=== PATIENT | female | born 1975 | race Caucasian/White ===

== ENCOUNTER 2021-05-09 09:38 | Emergency (ER) | payer BC, MEDICAID ==
[~2021-05-09] VITALS: Ht 149.9 cm; Wt 72.7 kg
[2021-05-09 10:18] LABS: BASOPHILS # (AUTO) 0.1 X10'3 (0-0.2); BASOPHILS % (AUTO) 0.7 % (0-1); EOSINOPHILS # (AUTO) 0.2 X10'3 (0-0.9); EOSINOPHILS % (AUTO) 2.6 % (0-6); HEMATOCRIT 40.7 % (35.0-45.0); LYMPHOCYTES # (AUTO) 1.6 X10'3 (1.1-4.8); LYMPHOCYTES % (AUTO) 19.8 % (21-51); MEAN CORPUSCULAR HEMOGLOBIN 30.8 PG (27.0-31.0); MEAN CORPUSCULAR HGB CONC 34.4 g/dL (33.0-36.5); MEAN CORPUSCULAR VOLUME 89.4 FL (78-98); MEAN PLATELET VOLUME 8.7 FL (7.4-10.4); MONOCYTES # (AUTO) 0.5 X10'3 (0-0.9); MONOCYTES % (AUTO) 6.8 % (2-12); NEUTROPHILS # (AUTO) 5.5 X10'3 (1.8-7.7); NEUTROPHILS % (AUTO) 70.1 % (42-75); PLATELET COUNT 268 X10'3 (140-440); RED BLOOD COUNT 4.55 X10'6 (4.20-5.60); RED CELL DISTRIBUTION WIDTH 12.4 % (11.5-14.5); WHITE BLOOD COUNT 7.8 X10'3 (4.5-11.0)
[2021-05-09 10:45] LABS: ALANINE AMINOTRANSFERASE 29 U/L (12-78); ALBUMIN 3.6 G/DL (3.4-5.0); ALBUMIN/GLOBULIN RATIO 0.9 (1.1-1.5); ALKALINE PHOSPHATASE 93 IU/L (46-116); ANION GAP 7 (8-16); ASPARTATE AMINO TRANSFERASE 23 U/L (10-37); BILIRUBIN,TOTAL 0.7 MG/DL (0.1-1.0); BLOOD UREA NITROGEN 16 MG/DL (7-18); BUN/CREATININE RATIO 20.5 (6.6-38.0); CALCIUM 8.8 MG/DL (8.5-10.1); CHLORIDE 103 MMOL/L (99-107); CREATININE 0.78 MG/DL (0.40-0.90); GLUCOSE 88 MG/DL (70-104); LIPASE 131 U/L (73-393); POTASSIUM 3.7 MMOL/L (3.5-5.1); SODIUM 137 MMOL/L (135-145); TOTAL CARBON DIOXIDE 26.7 MMOL/L (24-32); TOTAL PROTEIN 7.8 G/DL (6.4-8.2); eGFR 79 ML/MIN
[2021-05-09 11:15] LABS: URINE HCG NEGATIVE (NEG)
[2021-05-09 11:17] LABS: CLARITY,URINE SLIGHTLY CLOUDY (Clear); COLOR,URINE YELLOW (Yellow); GLUCOSE, URINE NEGATIVE (Neg); KETONES,URINE NEGATIVE (Neg); LEUKOCYTE ESTERASE ,URINE NEGATIVE (Neg); NITRITES, URINE NEGATIVE (Neg); OCCULT BLOOD,URINE NEGATIVE (Neg); PROTEIN,URINE NEGATIVE (Neg); UROBILINOGEN,URINE 0.2 E.U/dL (0.2-1.0)
[2021-05-09 11:19] LABS: UA COLLECTION TYPE CLN CATCH MIDSTREAM
[2021-05-09 11:23] LABS: AMORPHOUS PHOSPHATES 3+
[2021-05-09 11:24] LABS: BACTERIA,URINE NONE SEEN /HPF (Neg); MUCUS STRANDS NONE SEEN /LPF (Neg); RBC,URINE NONE SEEN /HPF (0-2); SQUAMOUS EPITHELIAL CELL,UR FEW /LPF (FEW); WBC,URINE 0-4 /HPF (0-4)
[2021-05-09] MEDS ORDERED: HYDR-3965 PO (11:41)
[2021-05-09] MEDS ORDERED: NAPR-56 PO (11:41)
[2021-05-09 11:51] VITALS: BP 185/109
== END 2021-05-09 11:53 | disposition home or self-care (01) ==
LOC: ER 09:39
DX: K80.50 Calculus of bile duct without cholangitis or cholecystitis without obstruction (principal); K80.20 Calculus of gallbladder without cholecystitis without obstruction; K80.80 Other cholelithiasis without obstruction; R10.10 Upper abdominal pain, unspecified; R11.0 Nausea; I10 Essential (primary) hypertension; F32.A Depression, unspecified; Z88.0 Allergy status to penicillin; Z79.899 Other long term (current) drug therapy
CPT/HCPCS: 36415; 76700; 80053; 81001; 81025; 83690; 85025; 99284

== ENCOUNTER 2021-05-30 05:47 | Day surgery (SDC) | payer MEDICAID ==
[2021-05-25 14:59] LABS: CLARITY,URINE SLIGHTLY CLOUDY (Clear); COLOR,URINE YELLOW (Yellow); GLUCOSE, URINE NEGATIVE (Neg); KETONES,URINE NEGATIVE (Neg); LEUKOCYTE ESTERASE ,URINE NEGATIVE (Neg); NITRITES, URINE NEGATIVE (Neg); OCCULT BLOOD,URINE NEGATIVE (Neg); PROTEIN,URINE NEGATIVE (Neg); UROBILINOGEN,URINE 0.2 E.U/dL (0.2-1.0)
[2021-05-25 15:01] LABS: BASOPHILS # (AUTO) 0.1 X10'3 (0-0.2); BASOPHILS % (AUTO) 0.9 % (0-1); EOSINOPHILS # (AUTO) 0.2 X10'3 (0-0.9); EOSINOPHILS % (AUTO) 2.8 % (0-6); LYMPHOCYTES # (AUTO) 2.2 X10'3 (1.1-4.8); LYMPHOCYTES % (AUTO) 25.2 % (21-51); MEAN CORPUSCULAR HEMOGLOBIN 30.9 PG (27.0-31.0); MEAN CORPUSCULAR HGB CONC 34.8 g/dL (33.0-36.5); MEAN PLATELET VOLUME 9.1 FL (7.4-10.4); MONOCYTES # (AUTO) 0.6 X10'3 (0-0.9); MONOCYTES % (AUTO) 7.2 % (2-12); NEUTROPHILS # (AUTO) 5.5 X10'3 (1.8-7.7); NEUTROPHILS % (AUTO) 63.9 % (42-75); PRE OP HEMATOCRIT 39.4 % (35.0-45.0); PRE OP HEMOGLOBIN 13.7 g/dL (12.0-16.0); PRE OP PLATELET COUNT 221 X10'3 (140-440); RED BLOOD COUNT 4.43 X10'6 (4.20-5.60); RED CELL DISTRIBUTION WIDTH 12.6 % (11.5-14.5)
[2021-05-25 15:15] LABS: ALBUMIN 3.5 G/DL (3.4-5.0); ALBUMIN/GLOBULIN RATIO 0.7 (1.1-1.5); ALKALINE PHOSPHATASE 78 IU/L (46-116); BLOOD UREA NITROGEN 21 MG/DL (7-18); BUN/CREATININE RATIO 26.3 (6.6-38.0); CALCIUM 8.9 MG/DL (8.5-10.1); CHLORIDE 105 MMOL/L (99-107); PRE OP ALT 25 U/L (30-65); PRE OP ANION GAP 13 (8-16); PRE OP AST 21 U/L (10-37); PRE OP BILIRUB, TOTAL 0.3 MG/DL (0.0-1.0); PRE OP GLUCOSE 84 MG/DL (70-104); PRE OP POTASSIUM 3.9 MMOL/L (3.4-5.1); PRE OP SODIUM 142 MMOL/L (135-145); TOTAL PROTEIN 8.3 G/DL (6.4-8.2); eGFR 77 ML/MIN
[2021-05-25 15:18] LABS: UA COLLECTION TYPE CLN CATCH MIDSTREAM
[2021-05-25 15:19] LABS: MUCUS STRANDS FEW /LPF (Neg); SQUAMOUS EPITHELIAL CELL,UR MODERATE /LPF (FEW)
[2021-05-25 15:20] LABS: BACTERIA,URINE 1+ /HPF (Neg); RBC,URINE 0-2 /HPF (0-2); WBC,URINE 0-4 /HPF (0-4)
[~2021-05-30] VITALS: Ht 149.9 cm; Wt 72.6 kg
[2021-05-30] VITALS (17 sets, daily range): BP systolic 118–142; BP diastolic 80–94
[~2021-05-30 05:47] MED LIST: AMLO2.5T2 PO; GENTAMICIN IV ONE; LOSA25TA96 PO; NORMAL SALINE IV ONE; clindamycin-Cleocin 900mg/D5W 50 ML IV ONE; famotidine 20mg tablet PO ONE; ringers solution, lacted 1,000 ML IV SCH
[2021-05-30] MEDS ORDERED: BUPIVAcaine 0.5% inj/PF 30 ML ONE (06:43)
[2021-05-30] MEDS ORDERED: midazolam 1 mg/ML 2ml injection ONE (08:33)
[2021-05-30] MEDS ORDERED: FENTANYL CITRATE/PF 50 MCG/1 ML VIAL ONE ×2 (08:33)
[2021-05-30] MEDS ORDERED: glycopyrrolate 0.2mg/ml inj ONE (08:47)
[2021-05-30] MEDS ORDERED: rocuronium 10mg/ml inj IV ONE (08:47)
[2021-05-30] MEDS ORDERED: neostigmine methylsulfate 1 MG/ML 10ml vial ONE (08:47)
[2021-05-30] MEDS ORDERED: LIDOcaine 2% (20mg/ml) 5ml vial ONE (08:47)
[2021-05-30] MEDS ORDERED: ondansetron/PF 4mg/2ml inj ONE (08:47)
[2021-05-30] MEDS ORDERED: dexamethasone sod phosphate 4mg/ml inj. ONE (08:47)
[2021-05-30] MEDS ORDERED: propofol inj 20 ML IV ONE (08:47)
[2021-05-30] MEDS ORDERED: acetaminophen 1,000mg/100ml IV 100 ML IV ONE (09:00)
[2021-05-30] MEDS ORDERED: meperidine/PF 25mg/ml syringe ONE (09:18)
--- NOTE | 2021-05-30 09:26 | NUR ---
Received from OR via [facility], accompanied by Anesthesiologist DR NICKERSON and report given by Anesthesiolgist. PT PRESENTS WITH PIV 20G LEFT HAND, ABD DRESSING CDI, VSS. Addendum: 05/30/21 at 0940 by Mary Bill RN, RN Amended: Links added.
[2021-05-30] MEDS ORDERED: ringers solution, lacted 1,000 ML IV SCH (09:40)
[2021-05-30] MEDS ORDERED: meperidine/PF 25mg/ml syringe IV PRN ×3 (09:40)
[2021-05-30] MEDS ORDERED: proCHLORperazine 10 MG/2 ml inj IV PRN (09:40)
[2021-05-30] MEDS ORDERED: morphine 2 MG/ML inj. syringe IV PRN (09:40)
[2021-05-30] MEDS ORDERED: morphine 4 MG/ML inj SYRINge IV PRN (09:40)
[2021-05-30] MEDS ORDERED: ondansetron/PF 4mg/2ml inj IV PRN (09:40)
[2021-05-30] MEDS ORDERED: HYDROcodone/acetaminophen 5mg/325mg tablet PO ONE (11:00)
--- NOTE | 2021-05-30 11:46 | NUR ---
PATIENT DISCHARGED FROM PACU IN STABLE CONDITION AFTER WRITTEN AND VERBAL DISCHARGE INSTRUCTIONS GIVEN. PATIENT GAVE VERBAL UNDERSTANDING OF INSTRUCTIONS GIVEN. PATIENT LEFT FACILITY VIA WHEELCHAIR WITH RN. Addendum: 05/30/21 at 1204 by Mary Bill RN RN Amended: Links added.
== END 2021-05-30 11:46 | disposition home or self-care (01) ==
LOC: PAS 05:47
PROVIDERS: ATTEND Surgery
DX: K80.12 Calculus of gallbladder with acute and chronic cholecystitis without obstruction (principal); I10 Essential (primary) hypertension; E66.9 Obesity, unspecified; Z68.32 Body mass index [BMI] 32.0-32.9, adult; Z88.0 Allergy status to penicillin; Z79.899 Other long term (current) drug therapy; Z98.890 Other specified postprocedural states; Z90.710 Acquired absence of both cervix and uterus; Z72.89 Other problems related to lifestyle; Z20.822 Contact with and (suspected) exposure to COVID-19; Z80.0 Family history of malignant neoplasm of digestive organs
CPT/HCPCS: 36415; 47562; 80053; 81001; 82948; 85025; 93005; J0131; J1100; J1580; J2175; J2250; J2405; J2704; J2710; J3010; J3490; J7030; J7120; S0020; U0003; U0005; Z7506; Z7508; Z7512; A4215; A4618; A7000

== ENCOUNTER 2022-09-05 11:35 | Emergency (ER) | payer MEDICAID ==
[~2022-09-05] VITALS: Ht 149.9 cm; Wt 75.0 kg
[~2022-09-05 11:35] MED LIST changes: -GENTAMICIN IV ONE; -NORMAL SALINE IV ONE; -clindamycin-Cleocin 900mg/D5W 50 ML IV ONE; -famotidine 20mg tablet PO ONE; -ringers solution, lacted 1,000 ML IV SCH
[2022-09-05 12:19] LABS: CLARITY,URINE CLEAR (Clear); COLOR,URINE YELLOW (Yellow); GLUCOSE, URINE NEGATIVE (Neg); KETONES,URINE NEGATIVE (Neg); LEUKOCYTE ESTERASE ,URINE NEGATIVE (Neg); NITRITES, URINE NEGATIVE (Neg); OCCULT BLOOD,URINE NEGATIVE (Neg); PROTEIN,URINE NEGATIVE (Neg); UA COLLECTION TYPE CLN CATCH MIDSTREAM; UROBILINOGEN,URINE 0.2 E.U/dL (0.2-1.0)
[2022-09-05 12:24] LABS: BASOPHILS # (AUTO) 0.1 X10'3 (0-0.2); EOSINOPHILS # (AUTO) 0.3 X10'3 (0-0.9); EOSINOPHILS % (AUTO) 3.3 % (0-6); HEMATOCRIT 42.6 % (35.0-45.0); HEMOGLOBIN 14.8 g/dl (12.0-16.0); LYMPHOCYTES # (AUTO) 2.3 X10'3 (1.1-4.8); LYMPHOCYTES % (AUTO) 24.1 % (21-51); MEAN CORPUSCULAR HEMOGLOBIN 31.2 PG (27.0-31.0); MEAN CORPUSCULAR HGB CONC 34.8 g/dL (33.0-36.5); MEAN CORPUSCULAR VOLUME 89.5 FL (78-98); MEAN PLATELET VOLUME 8.9 FL (7.4-10.4); MONOCYTES # (AUTO) 0.7 X10'3 (0-0.9); MONOCYTES % (AUTO) 7.7 % (2-12); NEUTROPHILS % (AUTO) 63.9 % (42-75); PLATELET COUNT 235 X10'3 (140-440); RED BLOOD COUNT 4.75 X10'6 (4.20-5.60); RED CELL DISTRIBUTION WIDTH 12.6 % (11.5-14.5); WHITE BLOOD COUNT 9.4 X10'3 (4.5-11.0)
[2022-09-05 12:39] LABS: ALANINE AMINOTRANSFERASE 34 U/L (12-78); ALBUMIN 3.7 G/DL (3.4-5.0); ALBUMIN/GLOBULIN RATIO 0.9 (1.1-1.5); ALKALINE PHOSPHATASE 94 IU/L (46-116); ANION GAP 6 (8-16); ASPARTATE AMINO TRANSFERASE 30 U/L (10-37); BILIRUBIN,TOTAL 0.4 MG/DL (0.1-1.0); BLOOD UREA NITROGEN 15 MG/DL (7-18); BUN/CREATININE RATIO 17.6 (10.0-20.0); CHLORIDE 103 MMOL/L (99-107); CREATININE 0.85 MG/DL (0.40-0.90); GLUCOSE 79 MG/DL (70-104); LIPASE 140 U/L (73-393); POTASSIUM 3.6 MMOL/L (3.5-5.1); SODIUM 136 MMOL/L (135-145); TOTAL CARBON DIOXIDE 26.7 MMOL/L (24-32); TOTAL PROTEIN 7.8 G/DL (6.4-8.2); eGFR 71 ML/MIN
[2022-09-05 13:02] VITALS: BP 170/94
--- NOTE | 2022-09-05 13:03 | NUR ---
PT STATES SHE DID NOT TAKE HER HTN MEDS TODAY
--- NOTE | 2022-09-05 14:02 | NUR ---
Awaiting for [place] paperwork.
== END 2022-09-05 14:12 | disposition home or self-care (01) ==
LOC: ER 11:35
DX: R10.9 Unspecified abdominal pain (principal); I10 Essential (primary) hypertension; F32.A Depression, unspecified; Z88.0 Allergy status to penicillin; Z79.899 Other long term (current) drug therapy
CPT/HCPCS: 36415; 74176; 80053; 81003; 83690; 85025; 99284